=== PATIENT | male | born 1965 | race Caucasian/White ===

== ENCOUNTER 2018-09-23 12:31 | Emergency (ER) | payer OTHER ==
--- NOTE | 2018-09-23 12:48 | PDOC ---
History of Present Illness - General Chief Complaint: Chest Pain Stated Complaint: CHEST PAIN/ANXIETY Time Seen by Provider: 09/23/18 12:34
[2018-09-23 12:51] VITALS: BP 150/91; PULSE 81; TEMP 98.5; BMI 32.5
--- NOTE | 2018-09-23 15:54 | EKG ---
Test Reason : Blood Pressure : / mmHG Vent. Rate : 075 BPM Atrial Rate : 075 BPM P-R Int : 180 ms QRS Dur : 086 ms QT Int : 378 ms P-R-T Axes : 056 058 035 degrees QTc Int : 422 ms NORMAL SINUS RHYTHM NORMAL ECG NO PREVIOUS ECGS AVAILABLE Confirmed by LULA SPENCER, CATY ([id number]) on 09/23/2018 3:54:22 PM Referred By: GISELLA CUNNINGHAM Confirmed By:CATY COTTON MD
== END 2018-09-23 15:02 | disposition home or self-care (01) ==
LOC: FER 12:31
DX: R07.89 Other chest pain (principal)
CPT/HCPCS: 93005; 99282-25